=== PATIENT | male | born 1965 | race Caucasian/White ===

== ENCOUNTER 2016-12-17 05:20 | Inpatient (IN) | payer BC ==
[2016-12-17] MEDS ORDERED: Lactated Ringers 1,000 ML IV SCH (06:30)
[2016-12-17] MEDS ORDERED: Povidone-Iodine 10% Soln 118.25 ML Bottle ONE (06:54)
[2016-12-17] MEDS ORDERED: Thrombin (Bovine) 5,000 Unit Kit ONE (06:54)
[2016-12-17] MEDS: Tranexamic Acid 1,000 MG in Sodium Chloride 0.9% 50 ML IV SCH ×3 (07:25→14:04)
[2016-12-17] MEDS ORDERED: Succinylcholine/Normal Saline 200 MG/10 ML Syringe ONE (07:29)
[2016-12-17] MEDS ORDERED: Propofol 200 MG/20 ML SDV ONE (07:29)
[2016-12-17] MEDS ORDERED: fentaNYL 250 MCG/5 ML SDV ONE ×3 (07:29→11:17)
[2016-12-17] MEDS ORDERED: Dexamethasone 4 MG/ML SDV ONE (07:29)
[2016-12-17] MEDS ORDERED: Rocuronium 50 MG/5 ML Vial ONE ×2 (07:29→08:02)
[2016-12-17] MEDS ORDERED: Ondansetron 4 MG/2 ML SDV ONE (07:29)
[2016-12-17] MEDS ORDERED: ceFAZolin 2 GM in Sodium Chloride 0.9% 50 ML IV ONE (07:45)
[2016-12-17] MEDS ORDERED: Ropivacaine 49.25 ML, Ketorolac 30 MG, EPINEPHrine 0.5 MG, cloNIDine 80 MCG, Sodium Chl... INJECT SCH ×5 (08:00)
[2016-12-17] MEDS ORDERED: Lactated Ringers 1,000 ML ONE (09:37)
[2016-12-17] MEDS ORDERED: ceFAZolin 1 GM Vial ONE (10:57)
[2016-12-17] MEDS ORDERED: Magnesium Hydroxide 400 MG/5 ML Susp 30 ML Cup PO PRN (12:35)
[2016-12-17] MEDS ORDERED: Naloxone 0.4 MG/ML SDV IVPUSH PRN (12:35)
[2016-12-17] MEDS ORDERED: Zolpidem 5 MG Tab PO PRN (12:35)
[2016-12-17] MEDS ORDERED: diphenhydrAMINE 25 MG Cap PO PRN (12:35)
[2016-12-17] MEDS ORDERED: Sennosides 8.6 MG Tab PO PRN (12:35)
[2016-12-17] MEDS ORDERED: Acetaminophen 650 MG in Premix Bag 1 BAG IV PRN (12:35)
[2016-12-17] MEDS ORDERED: Dexamethasone 4 MG/ML SDV IVPUSH SCH (12:45)
[2016-12-17] MEDS ORDERED: ceFAZolin 2 GM in Sodium Chloride 0.9% 50 ML IV SCH (12:45)
[2016-12-17] MEDS ORDERED: hydrOXYzine HCl 50 MG/ML SDV IM ONE (12:50)
[2016-12-17] MEDS: HYDROmorphone 1 MG/ML Syringe IVPUSH PRN ×4 (14:53→21:43)
--- NOTE | 2016-12-17 14:55 | PCM.PN ---
- General Info Date of Service: 12/17/16 Functional Status: Denies: pain controlled - Review of Systems Pulmonary: Denies: shortness of breath Musculoskeletal: Reports: back pain Systems Review Comment:: Patient is seen in the postop setting. He is having a fair amount of lower back pain at this time and will be receiving IV narcotics shortly. No complaints of pain that radiates from his lower back. No numbness or tingling in his extremities. He is able to wiggle his toes and feet without any difficulty. No complaints of chest pain, shortness of breath or palpitations. Vital signs have been stable so far. - Patient Data Vitals - most recent: Last Vital Signs Temp 36.1 C 12/17/16 14:09 Pulse 78 12/17/16 14:09 Resp 19 12/17/16 14:09 BP 136/79 12/17/16 14:09 Pulse Ox 95 12/17/16 14:09 Weight - most recent: 135.171 kg I&O - last 24 hours: Intake & Output 12/16/16 12/17/16 12/17/16 22:59 06:59 14:59 Output Total 350 Balance -350 Med Orders - Current: Current Medications Dexamethasone (Dexamethasone) 4 mg IVPUSH Q6H JUAN CARLOS Diazepam (Valium) 5 mg IVPUSH Q6H PRN PRN Reason: Spasms Last Admin: 12/17/16 13:05 Dose: 5 mg Diphenhydramine HCl (Benadryl) 25 mg PO Q4H PRN PRN Reason: Itching Hydromorphone HCl (Dilaudid) 1 mg IVPUSH Q2H PRN PRN Reason: Pain Lactated Ringer's (Ringers, Lactated) 1,000 mls @ 0 mls/hr IV ASDIRECTED JUAN CARLOS PRN Reason: KVO Last Admin: 12/17/16 07:13 Dose: 25 mls/hr Acetaminophen 650 mg/ Premix 65 mls @ 400 mls/hr IV Q6H PRN PRN Reason: Pain Stop: 12/18/16 12:36 Cefazolin Sodium 2 gm/ Sodium (Chloride) 50 mls @ 100 mls/hr IV Q8H JUAN CARLOS Magnesium Hydroxide (Milk Of Magnesia) 30 ml PO DAILY PRN PRN Reason: Constipation Oxycodone/Acetaminophen (Percocet 325-5 Mg) 2 tab PO Q6H PRN PRN Reason: Pain Senna (Senna) 8.6 mg PO BID PRN PRN Reason: Constipation Zolpidem Tartrate (Ambien) 5 mg PO BEDTIME PRN PRN Reason: Sleep Discontinued Medications Cefazolin Sodium (Ancef) Confirm Administered Dose 2 gm .ROUTE .STK-MED ONE Stop: 12/17/16 10:58 Ropivacaine 49.25 ml/Ketorolac Tromethamine 30 mg/Epinephrine HCl 0.5 mg/ Clonidine HCl 80 mcg/ Sodium Chloride 48.45 ml 0 ml INJECT ASDIRECTED [facility] Stop: 12/17/16 08:01 Dexamethasone (Dexamethasone) Confirm Administered Dose 4 mg .ROUTE .STK-MED ONE Stop: 12/17/16 07:30 Dexamethasone (Dexamethasone) 4 mg IVPUSH Q6H [facility] Fentanyl (Sublimaze) Confirm Administered Dose 500 mcg .ROUTE .STK-MED ONE Stop: 12/17/16 07:30 Fentanyl (Sublimaze) Confirm Administered Dose 250 mcg .ROUTE .STK-MED ONE Stop: 12/17/16 09:42 Fentanyl (Sublimaze) Confirm Administered Dose 250 mcg .ROUTE .STK-MED ONE Stop: 12/17/16 11:18 Glycopyrrolate () Confirm Administered Dose 1 mg .ROUTE .STK-MED ONE Stop: 12/17/16 08:14 Hydroxyzine HCl (Vistaril) 100 mg IM ONETIME ONE Stop: 12/17/16 12:51 Last Admin: 12/17/16 12:57 Dose: 100 mg Cefazolin Sodium 2 gm/ Sodium (Chloride) 50 mls @ 100 mls/hr IV ONETIME ONE Stop: 12/17/16 08:14 Last Admin: 12/17/16 07:24 Dose: 100 mls/hr Tranexamic Acid 1,000 mg/ (Sodium Chloride) 60 mls @ 240 mls/hr IV Q3H [facility] Stop: 12/17/16 11:14 Last Admin: 12/17/16 14:04 Dose: Not Given Lactated Ringer's (Ringers, Lactated) Confirm Administered Dose 1,000 mls @ as directed .ROUTE .STK-MED ONE Stop: 12/17/16 09:38 Cefazolin Sodium 2 gm/ Sodium (Chloride) 50 mls @ 100 mls/hr IV Q8H JUAN CARLOS Naloxone HCl (Narcan) 0.2 mg IVPUSH ONETIME PRN PRN Reason: Oversedation Stop: 12/17/16 12:36 Ondansetron HCl (Zofran) Confirm Administered Dose 4 mg .ROUTE .STK-MED ONE Stop: 12/17/16 07:30 Povidone Iodine (Betadine 10% Soln) Confirm Administered Dose 1 ml .ROUTE .STK- MED ONE Stop: 12/17/16 06:55 Last Admin: 12/17/16 08:28 Dose: 1 ml Propofol (Diprivan 20 Ml) Confirm Administered Dose 200 mg .ROUTE .STK-MED ONE Stop: 12/17/16 07:30 Rocuronium [place] (Zemuron) Confirm Administered Dose 50 mg .ROUTE .STK-MED ONE Stop: 12/17/16 07:30 Rocuronium [place] (Zemuron) Confirm Administered Dose 50 mg .ROUTE .STK-MED ONE Stop: 12/17/16 08:03 Succinylcholine Chloride (Succinylcholine In Ns Pf) Confirm Administered Dose 200 mg .ROUTE .STK-MED ONE Stop: 12/17/16 07:30 Thrombin (Thrombin-Jmi) Confirm Administered Dose 10,000 unit .ROUTE .STK-MED ONE Stop: 12/17/16 06:55 Last Admin: 12/17/16 08:27 Dose: 10,000 unit - Exam Quality Assessment: supplemental oxygen General: alert, oriented, cooperative, no acute distress Neck: supple Lungs: Clear to auscultation, Normal respiratory effort Abdomen: soft, no distension Back Exam: normal inspection Extremities: no edema, no cyanosis Skin: warm, dry Wound/Incisions: dressing dry and intact, no drainage Psy/Mental Status: alert, normal affect - Problem List Review Problem List Initiated/Reviewed/Updated: Yes - My Orders Last 24 Hours: My Active Orders 12/17/16 21:00 Gabapentin [Neurontin] 300 mg PO BID Mercaptopurine [Mercaptopurine] 75 mg PO BEDTIME - Plan Plan:: ASSESSMENT AND PLAN Lumbar spinal stenosis with radiculopathy - status post lumbar fusion. Significant pain postoperatively but otherwise stable. -Postoperative cares per surgical team -Restart gabapentin Paroxysmal atrial fibrillation - no evidence for recurrence. Crohn's disease - stable at this time with suppressive medication use. -Continue mercaptopurine Kamlesh Jordan M.D.
[2016-12-17] MEDS: Dexamethasone 4 MG/ML SDV IVPUSH SCH ×2 (15:02→21:30)
[2016-12-17] MEDS: ceFAZolin 2 GM in Sodium Chloride 0.9% 50 ML IV SCH ×2 (15:27→23:08)
[2016-12-17] MEDS: Acetaminophen/oxyCODONE 325-5 MG Tab PO PRN ×2 (16:35→22:23)
--- NOTE | 2016-12-17 18:43 | OR ---
DATE OF PROCEDURE: 12/17/2016 PREOPERATIVE DIAGNOSIS: L4-L5 and L5-S1 lumbar stenosis and radiculopathy. POSTOPERATIVE DIAGNOSIS: L4-L5 and L5-S1 lumbar stenosis and radiculopathy. PROCEDURES: 1. L4-L5 and L5-S1 posterolateral lumbar fusion. 2. L4-L5 laminectomy required in addition to preparation for disk space. 3. L5-S1 disk laminectomy required in addition to preparation for disk space. 4. Insertion of interbody device, L4-L5. 5. Insertion of interbody device, L5-S1. 6. Segmental instrumentation, L4-L5 and L5-S1. 7. Use of biosynthetic allograft and autograft obtained from laminectomy, applied in the posterolateral gutter, L4-L5 and L5-S1. INDICATIONS: The patient is well known to me. We had to cancel his last surgery in July because he went into atrial fibrillation. Preoperative imaging confirmed the above- mentioned diagnosis. Risks and benefits of the procedure were explained to the patient. Informed consent was obtained. DETAILS OF PROCEDURE: The patient was seen preoperatively by myself and the anesthesia staff in the preop holding area where the operative site was marked. He was brought to the operative suite by the anesthesia staff where general anesthesia was administered. Neuromonitoring leads were placed. A sterile Kimble catheter was placed. The operating microscope as well as the fluoroscopy unit was draped in sterile manner. He was placed into a prone position on a Andrei table. All extremities found to be well padded. The back was then prepped and draped in a sterile manner. Time-out was called identifying the correct patient, correct procedure, the correct site, and antibiotics had been with appropriate period of time. Please note that antibiotics were again repeated approximately 10:45 which were 2 g of Ancef. The sterilely draped fluoroscopy unit was used to identify the L4 through S1 pedicles and then a midline incision was made over the L3 through S1 spinous processes and carried down to the fascia. Bleeding was controlled with Bovie electrocautery as well as a 5.0 Aquamantys unit. Cerebellar retractors were then used, I then went through the fascia with a Diaz elevator, dissected over the posterior aspect of the spinous process and its respective lamina facets from L3 down to S1. After this had been accomplished, I then came down over the transverse processes on the left at L4, L5, and S1 and created a space for the graft to the posterolateral gutter. After this had been accomplished, I then proceeded with screw placement on the left side. He did have a lumbarized sacral S1 segment and I did use lateral fluoroscopy to help identify the appropriate starting point. I also used the PediGuard to ensure that I was in the pedicle. I started with the S1 pedicle and then placed the L5 and L4 pedicles screws. After this had been accomplished, I did this in a manner by where I have used the PediGuard to make sure that we were in the correct tract and then used a pedicle probe, followed by tapping, followed by pedicle probe, followed by screw placement. A 50 mm x 6.5 mm screws were used in all pedicles except for the left L5 pedicle which had a 45 mm screw placed. This was then repeated on the right side. After this had been accomplished, I then proceeded with my interbody placement starting at the L4- L5 disk space on the right. He did have a right disk herniation on the posterior aspect of the right side of the L4 vertebral body, so I decided to start there. This was done by making a trough to the lateral lamina and then used an osteotome to remove the inferior facet of the superior vertebral body and then using a long ball, 3-0 curette and Kerrison removing the superior facet of the inferior vertebral body, this provided good access as well as protection of the dura with ligamentum flavum still intact, identified the disk space and then used sequential leonor from starting to 7 to 11. I then did a thorough diskectomy using straight upgoing and downgoing curettes as well as a pituitary and removed a fair amount of disk material at each level. I then used a bone final and under radiographic guidance, I counted as far as anterior as I could on the disk space and then inserted synthetic as well as autograft containing from my facetectomies. I then inserted my interbody. At L4-L5, I inserted a 10 x 26, 8 to 15, 4-degree implant and a 10 x 22, 11 to 17, 4-degree implant at L5-S1. I repeated this same exact procedure at L5-S1 to insert the interbody at that level. After this had been accomplished, I then placed my tulips and then placed a macey on the right side. I did have to do some controlled bleeding with bipolar electrocautery during this preparation as well. I then proceeded to remove the L4 and L5 spinous processes and all of the lamina at L4 and partial lamina at L5. I then used a nerve root retractor to protect the dura and then explored where the disk herniation should be on the right behind the L4 vertebral body. I was able to remove a small amount of disk material. There was fair amount of epidural bleeding which was controlled with FloSeal as well as a Ray-Maryjane. After having performed these laminectomies, I irrigated with 3 L of Betadine infused irrigation. I then decorticated the transverse processes and the lateral aspect of the facets at L4, L5, and S1 on the left. I then inserted my tulips and rods and placed the graft which contained some of the synthetic graft plus graft from the laminectomy site. After this had been accomplished, I then ran a drain at the lateral aspect of the wound under the fascia. We then closed the fascia with a #2 interlocking suture, followed by #2 running suture, followed by a liter of Betadine infused irrigation, followed by deep 0 interrupted sutures, followed by 2-0 subcutaneous sutures, followed by 2-0 Monocryl, followed by Dermabond as well as sterile dressing and Medipore tape. The screws were tested, the lowest one was L5 on the left at 9. All the others were above 20. Neuromonitoring leads were normal throughout the case. We then flipped the patient back onto his hospital bed into a supine position. He was taken to the PACU in stable condition. Sukhdeep Martinez DO /[id number]
[2016-12-17] MEDS ORDERED: MERCAPTOPURINE PO SCH (21:00)
[2016-12-17] MEDS ORDERED: MERCAPTOPURINE 50 MG PO SCH (21:00)
[2016-12-17] MEDS: Gabapentin 300 MG Cap PO SCH (21:30)
[2016-12-18] MEDS: Dexamethasone 4 MG/ML SDV IVPUSH SCH ×2 (03:40→08:20)
[2016-12-18] MEDS: Acetaminophen/oxyCODONE 325-5 MG Tab PO PRN ×2 (04:35→10:30)
--- NOTE | 2016-12-18 07:37 | OR ---
DATE OF PROCEDURE: 12/17/2016 This is an addendum to operative report. I think I went as far as the diagnosis. ADDENDUM: ESTIMATED BLOOD LOSS: 30 mL. COMPLICATIONS: None. SPECIMEN: None. FLUID: Lactated Ringer's solution. DISCHARGE DISPOSITION: Stable to PACU. Sukhdeep Martinez DO /[id number]
[2016-12-18] MEDS: ceFAZolin 2 GM in Sodium Chloride 0.9% 50 ML IV SCH (07:41)
[2016-12-18] MEDS: Gabapentin 300 MG Cap PO SCH (08:20)
[2016-12-18 12:05] VITALS: BP 126/76
--- NOTE | 2016-12-30 10:57 | DISCH ---
DIAGNOSIS: Lumbar radiculopathy and stenosis L4-L5 and L5-S1. PROCEDURE: Posterior lumbar interbody fusion, L4-L5 and L5-S1. DIET: Regular diet. DISCHARGE ACTIVITY: Weightbearing as tolerated. No bending, lifting, or twisting. DISCHARGE DISPOSITION: To home in good condition. CONSULTS: Kamlesh Jordan MD for medical management. DISCHARGE MEDICATIONS: Acetaminophen oxycodone 325/5 mg one p.o. q.6 hours p.r.n. pain, diazepam 5 mg p.o. daily, Lasix 20 mg p.o. daily, mercaptopurine 75 mg p.o. at bedtime, multivitamin one tab p.o. daily, tramadol 50 mg orally t.i.d., gabapentin 300 mg orally b.i.d. ALLERGIES: AZITHROMYCIN. FOLLOWUP: Is with Dr. Martinez in one month postoperatively. SUMMARY OF HOSPITAL STAY: The patient was admitted on 12/17/2016 for the above-mentioned diagnosis. He underwent the above-mentioned procedures, kept postoperatively for physical therapy, occupational therapy, and pain control. We discharged him with a drain. His is a nurse and was given instructions regarding the drain management. He was discharged home in good condition with one-month followup.
== END 2016-12-18 13:45 | disposition home or self-care (01) | DRG 304 ==
LOC: JP.SDS 05:20 → JP.MS 05:20 → EDSTATUS 07:30 → JP.MS 14:00
PROVIDERS: ADMIT Orthopaedic Surgery; ATTEND Orthopaedic Surgery
PROC: 0SG10A1 (ICD-10-PCS; principal; 2016-12-17)
PROC: 0SG10K1 Fusion of 2 or more Lumbar Vertebral Joints with Nonautologous Tissue Substitute, Posterior Approach, Posterior Column, Open Approach (ICD-10-PCS; 2016-12-17)
PROC: 0SB40ZZ Excision of Lumbosacral Disc, Open Approach (ICD-10-PCS; 2016-12-17)
DX: M48.06 Spinal stenosis, lumbar region (principal); M54.16 Radiculopathy, lumbar region; K50.90 Crohn's disease, unspecified, without complications; J45.909 Unspecified asthma, uncomplicated; I48.0 Paroxysmal atrial fibrillation; I50.9 Heart failure, unspecified; G47.33 Obstructive sleep apnea (adult) (pediatric); Z79.899 Other long term (current) drug therapy
CPT/HCPCS: 36415; 76001; 80048; 85025; 97110-GP; 97162-GP; 97165-GO; 97530-GP; 97535-GP; 97760-GP; A9270-GY; C1713; J0690; J1100; J1170; J2405; J2704; J3010; J3360; J3410; J7050; J7120

== ENCOUNTER 2017-05-23 08:09 | Emergency (ER) | payer BC ==
[2017-05-23] MEDS ORDERED: Diltiazem 25 MG/5 ML SDV IVPUSH ONE (08:26)
[2017-05-23] MEDS ORDERED: Diltiazem 100 MG in Sodium Chloride 0.9% 100 ML IV SCH (08:30)
--- NOTE | 2017-05-23 08:33 | EDM.PDOC ---
ED HPI GENERAL MEDICAL PROBLEM - General Chief Complaint: Cardiovascular Problem Stated Complaint: A-FIB Time Seen by Provider: 05/23/17 08:28 Source of Information: Reports: Patient History Limitations: Reports: No Limitations - History of Present Illness INITIAL COMMENTS - FREE TEXT/NARRATIVE: pt went into a irregular heart rhythm about 11 pm last nite. He had a restless nite. Onset: Other ( last nite at 11 pm. ) Duration: Hour(s): Location: Reports: Chest, Other (pt hs no chest pain. ) Associated Symptoms: Reports: No Other Symptoms, Other ( Pt has a rapid irregular heart rhythm. ) - Related Data Allergies Allergy/AdvReac Type Severity Reaction Status Date / Time azithromycin Allergy Intermediate Rash Verified 05/23/17 08:19 [From Zithromax Z-Coleman] Home Meds: Home Meds Furosemide [Lasix] 20 mg PO DAILY PRN 07/21/13 [History] Mercaptopurine 75 mg PO BEDTIME 07/29/15 [History] Multivitamin [Multivitamins] 1 tab PO DAILY 07/23/16 [History] Gabapentin [Neurontin] 300 mg PO TID PRN 04/23/17 [History] traMADol [Ultram] 50 mg PO Q6H PRN 05/13/17 [History] Past Medical History HEENT History: Reports: Impaired Vision Other HEENT History: wears glasses Cardiovascular History: Reports: Afib, Arrhythmia, Heart Failure, Other (See Below) Other Cardiovascular History: ARVD; hx of cardioversion Respiratory History: Reports: Sleep Apnea Gastrointestinal History: Reports: Colon Polyp, Inflammatory Bowel Disease, Other (See Below) Other Gastrointestinal History: Chrons Genitourinary History: Reports: None Musculoskeletal History: Reports: Back Pain, Chronic, Fracture, Other (See Below ) Other Musculoskeletal History: s/p low back surgery Endocrine/Metabolic History: Reports: Obesity/BMI 30+ - Infectious Disease History Infectious Disease History: Reports: Chicken Pox - Past Surgical History HEENT Surgical History: Reports: Adenoidectomy, LASIK, Naso-Sinus Surgery Male Surgical History: Reports: Vasectomy Musculoskeletal Surgical History: Reports: Arthroscopic Procedure Social & Family History - Family History Cardiac: Reports: Aneurysm, Heart Failure, Pacemaker, Stent, Other (See Below) Other Cardiac Family History: ARVD Respiratory: Reports: COPD, Sleep Apnea GI: Reports: Other (See Below) Other GI Family History: Chrons; ulcerative colitis Musculoskeletal: Reports: Fibromyalgia Neurological: Reports: Cerebral Aneurysms Psychiatric: Reports: Psychosis Endocrine/Metabolic: Reports: Diabetes, Type I - Tobacco Use Smoking Status *Q: Never Smoker Second Hand Smoke Exposure: No - Caffeine Use Caffeine Use: Reports: Coffee - Alcohol Use Days Per Week of Alcohol Use: 0 - Recreational Drug Use Recreational Drug Use: No - Living Situation & Occupation Living situation: Reports: Occupation: Employed ED ROS GENERAL - Review of Systems Review Of Systems: See Below Constitutional: Reports: No Symptoms HEENT: Reports: No Symptoms Respiratory: Reports: No Symptoms Cardiovascular: Reports: Palpitations, Other (pt has not been doing anything different. ) Endocrine: Reports: No Symptoms GI/Abdominal: Reports: No Symptoms : Reports: No Symptoms Musculoskeletal: Reports: No Symptoms Skin: Reports: No Symptoms Neurological: Reports: No Symptoms ED EXAM, GENERAL - Physical Exam Exam: See Below Free Text/Narrative:: pt is not in any distress at this time. Exam Limited By: No Limitations General Appearance: Alert, No Apparent Distress Ears: Normal TMs Nose: Normal Inspection Throat/Mouth: Normal Inspection Head: Atraumatic Neck: Normal Inspection Respiratory/Chest: No Respiratory Distress Cardiovascular: Irregularly Irregular, Other ( rate is in the 100 range. ) GI/Abdominal: Soft, Non-Tender (Male) Exam: Deferred Rectal (Males) Exam: Deferred Extremities: Normal Inspection Neurological: Alert, Oriented, Normal Cognition Psychiatric: Normal Affect Skin Exam: Warm Course - Vital Signs Last Recorded V/S: Last Vital Signs Temp 36.6 C 05/23/17 08:16 Pulse 54 L 05/23/17 10:57 Resp 13 05/23/17 10:57 BP 116/78 05/23/17 10:57 Pulse Ox 100 05/23/17 10:57 - Orders/Labs/Meds Orders: Active Orders 24 hr Category Date Time Status EKG Documentation Completion [RC] ASDIRECTED Care 05/23/17 08:21 Active EKG Documentation Completion [RC] ASDIRECTED Care 05/23/17 11:16 Ordered UA W/MICROSCOPIC [URIN] Urgent Lab 05/23/17 08:20 Uncollected Diltiazem [Cardizem] 100 mg Med 05/23/17 08:30 Active Sodium Chloride 0.9% [Normal Saline] 100 ml IV TITRATE EKG 12 Lead [EK] Routine Ther 05/23/17 08:21 Ordered EKG 12 Lead [EK] Routine Ther 05/23/17 11:16 Ordered Medication Orders Diltiazem HCl 100 mg/ Sodium (Chloride) 100 mls @ 5 mls/hr IV TITRATE JUAN CARLOS; 5 MG /HR PRN Reason: Protocol Last Titration: 05/23/17 08:47 Dose: 10 mg/hr, 10 mls/hr Admin: 05/23/17 08:40 Dose: 5 mg/hr, 5 mls/hr Labs: Laboratory Tests 05/23/17 05/23/17 05/23/17 Range/Units 08:20 08:20 08:20 WBC 8.2 (4.5-11.0) K/uL RBC 5.15 (4.30-5.90) M/uL Hgb 15.5 H D (12.0-15.0) g/dL Hct 45.4 (40.0-54.0) % MCV 88 (80-98) fL MCH 30 (27-31) pg MCHC 34 (32-36) % Plt Count 213 (150-400) K/uL Neut % (Auto) 67 H (36-66) % Lymph % (Auto) 23 L (24-44) % [place] % (Auto) 8 H (2-6) % Eos % (Auto) 2 (2-4) % Baso % (Auto) 1 (0-1) % Sodium 141 (140-148) mmol/L Potassium 4.7 (3.6-5.2) mmol/L Chloride 109 H (100-108) mmol/L Carbon Dioxide 28 (21-32) mmol/L Anion Gap 8.7 (5.0-14.0) mmol/L BUN 14 (7-18) mg/dL Creatinine 0.9 (0.8-1.3) mg/dL Est Cr Clr Drug Dosing 110.97 mL/min Estimated GFR (MDRD) > 60 (>60) Glucose 112 H (74-106) mg/dL Calcium 8.4 L (8.5-10.1) mg/dL Total Bilirubin 0.4 (0.2-1.0) mg/dL AST 16 (15-37) U/L ALT 39 (12-78) U/L Alkaline Phosphatase 34 L (46-116) U/L Troponin I < 0.017 (0.000-0.056) ng/mL Total Protein 5.7 L (6.4-8.2) g/dL Albumin 3.5 (3.4-5.0) g/dL Globulin 2.2 L (2.3-3.5) g/dL Albumin/Globulin Ratio 1.6 (1.2-2.2) TSH, Ultra Sensitive (0.358-3.740) uIU/mL 05/23/17 Range/Units 08:34 WBC (4.5-11.0) K/uL RBC (4.30-5.90) M/uL Hgb (12.0-15.0) g/dL Hct (40.0-54.0) % MCV (80-98) fL MCH (27-31) pg MCHC (32-36) % Plt Count (150-400) K/uL Neut % (Auto) (36-66) % Lymph % (Auto) (24-44) % [place] % (Auto) (2-6) % Eos % (Auto) (2-4) % Baso % (Auto) (0-1) % Sodium (140-148) mmol/L Potassium (3.6-5.2) mmol/L Chloride (100-108) mmol/L Carbon Dioxide (21-32) mmol/L Anion Gap (5.0-14.0) mmol/L BUN (7-18) mg/dL Creatinine (0.8-1.3) mg/dL Est Cr Clr Drug Dosing mL/min Estimated GFR (MDRD) (>60) Glucose (74-106) mg/dL Calcium (8.5-10.1) mg/dL Total Bilirubin (0.2-1.0) mg/dL AST (15-37) U/L ALT (12-78) U/L Alkaline Phosphatase (46-116) U/L Troponin I (0.000-0.056) ng/mL Total Protein (6.4-8.2) g/dL Albumin (3.4-5.0) g/dL Globulin (2.3-3.5) g/dL Albumin/Globulin Ratio (1.2-2.2) TSH, Ultra Sensitive 0.757 (0.358-3.740) uIU/mL Meds: Medications Generic Name Dose Route Start Last Admin Trade Name Freq PRN Reason Stop Dose Admin Diltiazem HCl 100 mg/ Sodium 100 mls @ 5 mls/hr 05/23/17 08:30 05/23/17 08:47 Chloride IV 10 mg/hr TITRATE JUAN CARLOS 10 mls/hr Protocol Titration 5 MG/HR Discontinued Medications Generic Name Dose Route Start Last Admin Trade Name Freq PRN Reason Stop Dose Admin Diltiazem HCl 10 mg 05/23/17 08:26 05/23/17 08:37 Diltiazem IVPUSH 05/23/17 08:27 10 mg ONETIME ONE Administration Propofol Confirm 05/23/17 10:43 Diprivan 20 Ml Administered 05/23/17 10:44 Dose 200 mg .ROUTE .STK-MED ONE - Re-Assessments/Exams Free Text/Narrative Re-Assessment/Exam: 05/23/17 10:21 pt arrived with a history of a irregular heart rhythm. He has had atrial fib 3 times. He has been electriclly cardioverted twice. he went into this about 11 pm last nite. 05/23/17 10:24 pt had normal lab work and a normal trop. He has a cardizem drip going and his rate has slowed to 70. He will be electrically cardioverted. Dr Jordan consulted on the pt. 05/23/17 11:17 pt was cardioverted and did well with that Departure - Departure Time of Disposition: 11:18 Disposition: Home, Self-Care 01 Condition: Fair Clinical Impression: Atrial fibrillation, Encounter for cardioversion procedure Referrals: Abel Saucedo MD [Primary Care Provider] - Forms: ED Department Discharge Care Plan Goals: rtc if problems, cont same meds. - My Orders Last 24 Hours: My Active Orders 05/23/17 08:20 UA W/MICROSCOPIC [URIN] Urgent 05/23/17 08:21 EKG Documentation Completion [RC] ASDIRECTED EKG 12 Lead [EK] Routine 05/23/17 08:30 Diltiazem [Cardizem] 100 mg Sodium Chloride 0.9% [Normal Saline] 100 ml IV TITRATE 05/23/17 11:16 EKG Documentation Completion [RC] ASDIRECTED EKG 12 Lead [EK] Routine - Assessment/Plan Last 24 Hours: My Active Orders 05/23/17 08:20 UA W/MICROSCOPIC [URIN] Urgent 05/23/17 08:21 EKG Documentation Completion [RC] ASDIRECTED EKG 12 Lead [EK] Routine 05/23/17 08:30 Diltiazem [Cardizem] 100 mg Sodium Chloride 0.9% [Normal Saline] 100 ml IV TITRATE 05/23/17 11:16 EKG Documentation Completion [RC] ASDIRECTED EKG 12 Lead [EK] Routine
[2017-05-23] MEDS ORDERED: Propofol 200 MG/20 ML SDV ONE (10:43)
[2017-05-23 11:02] VITALS: BP 116/78
--- NOTE | 2017-05-23 11:04 | PCM.PRNOTE ---
- Free Text/Narrative Note: Date of service: 05/23/2017 Proposed procedure: synchronized cardioversion Preprocedure diagnosis: paroxysmal atrial fibrillation with rapid ventricular response Post procedure diagnosis: paroxysmal atrial fibrillation with rapid ventricular response Indication for procedure: Armen was evaluated today for management atrial fibrillation with rapid ventricular response. Synchronized cardioversion was recommended as a primary treatment withparoxysmal nature and chronic anticoagulation. Description of the procedure: Armen is currently located in [place] [id number]. We have reviewed the potential risks of electrical cardioversion including but not limited to: Superficial skin whitley, ineffective treatment, other arrhythmias, reaction to anesthesia medications or potentially asystole. The benefits of the procedure have also been reviewed. At this time the patient wishes to proceed with electrical cardioversion. All necessary pre-procedure information and paperwork has been provided and completed, respectively. The patient was connected to cardioversion pads and monitoring equipment per protocol. Prior to the procedure, a timeout was held with nursing and anesthesia present to confirm the right patient and right procedure. Once appropriate anesthesia was applied the machine was charged to 200 Joules and a synchronized electrical shock was applied. The patient was successfully converted to normal sinus rhythm based on telemetry monitoring. They will remain in their current location until anesthesia has dissipated and the patient is more awake and alert. They will then be discharged to home once medically stable. Anticoagulation should be continued for at least one month post cardioversion. There were no immediate complications noted from the procedure. Post procedure EKG is pending at the time of dictation. No medication changes are recommended at this time given the long duration between episodes. Kamlesh Jordan M.D.
== END 2017-05-23 11:59 | disposition home or self-care (01) ==
LOC: JP.ED 08:09
DX: I48.91 Unspecified atrial fibrillation (principal); I50.9 Heart failure, unspecified; G47.30 Sleep apnea, unspecified; E66.9 Obesity, unspecified; Z98.890 Other specified postprocedural states; Z79.899 Other long term (current) drug therapy; Z88.1 Allergy status to other antibiotic agents
CPT/HCPCS: 36415; 80053; 84443; 84484; 85025; 92960; 93005; 96374; 99284; J2704; J3490; J7030

== ENCOUNTER 2017-12-29 05:59 | Day surgery (SDC) | payer BC ==
[~2017-12-29 05:59] MED LIST: Acetaminophen 500 MG Tab PO ONE; Gabapentin 300 MG Cap PO ONE; Scopolamine 1.5 MG Transdermal Patch TOP SCH
[2017-12-29] MEDS ORDERED: Povidone-Iodine 10% Soln 118.25 ML Bottle ONE (06:59)
[2017-12-29] MEDS ORDERED: Thrombin (Bovine) 5,000 Unit Kit ONE (06:59)
[2017-12-29] MEDS ORDERED: Lactated Ringers 1,000 ML IV SCH (07:15)
[2017-12-29] MEDS ORDERED: ceFAZolin 2 GM in Premix Bag 1 BAG IV ONE (07:15)
[2017-12-29] MEDS ORDERED: Dexamethasone 4 MG/ML SDV ONE (07:22)
[2017-12-29] MEDS ORDERED: Succinylcholine 200 MG/10 ML MDV ONE (07:22)
[2017-12-29] MEDS ORDERED: Propofol 200 MG/20 ML SDV ONE ×3 (07:22→09:01)
[2017-12-29] MEDS ORDERED: Rocuronium 50 MG/5 ML Vial ONE ×2 (07:22→08:33)
[2017-12-29] MEDS ORDERED: Ondansetron 4 MG/2 ML SDV ONE (07:22)
[2017-12-29] MEDS ORDERED: Ketamine 500 MG/5 ML MDV IV SCH (07:45)
[2017-12-29] MEDS: Tranexamic Acid 1,000 MG in Sodium Chloride 0.9% 50 ML IV SCH ×2 (07:45→10:21)
[2017-12-29] MEDS ORDERED: Ropivacaine 49.25 ML, Ketorolac 30 MG, EPINEPHrine 0.5 MG, cloNIDine 80 MCG, Sodium Chl... INJECT ONE ×5 (07:45)
[2017-12-29] MEDS ORDERED: fentaNYL 250 MCG/5 ML SDV ONE (07:47)
[2017-12-29] MEDS ORDERED: Naloxone 0.4 MG/ML SDV IVPUSH PRN (10:13)
[2017-12-29] MEDS ORDERED: Zolpidem 5 MG Tab PO PRN (10:13)
[2017-12-29] MEDS ORDERED: diphenhydrAMINE 25 MG Cap PO PRN (10:13)
[2017-12-29] MEDS ORDERED: Acetaminophen/oxyCODONE 325-5 MG Tab PO PRN (10:16)
[2017-12-29] MEDS ORDERED: Morphine 2 MG/ML Syringe IVPUSH PRN (10:17)
[2017-12-29] MEDS ORDERED: VERIFY SCOPOLAMINE PATCH TOP SCH (11:00)
[2017-12-29 14:48] VITALS: BP 109/67
[2017-12-29] MEDS ORDERED: ceFAZolin 1 GM in Premix Bag 1 BAG IV SCH (15:00)
--- NOTE | 2017-12-29 15:38 | PCM.DCSUM1 ---
Discharge Summary - Discharge Data Discharge Date: 12/29/17 Discharge Disposition: Home, Self-Care 01 Condition: Good - Patient Summary/Data Operative Procedure(s) Performed: revision L4-S1 fusion Complications: none Consults: Consultations 12/29/17 10:13 OT Evaluation and Treatment [CONS] Routine Please Evaluate and Treat. OT Reason for Consult: Strengthening This query below is only for informational purposes and is not editable. PT Evaluation and Treatment [CONS] Routine Please Evaluate and Treat. PT Reason for Consult: Strengthening This query below is only for informational purposes and is not editable. Respiratory Care Assess and Treatment [CONS] Routine Comment: Physician Instructions: ost Op Pneumonia Prevention - Patient Instructions Diet: Usual Diet as Tolerated Activity: Apply Ice, Full Weight Bearing, No Strenuous Activities, Rest and Relax Today Driving: Do Not Drive Showering/Bathing: May Shower Wound/Incision Care: Keep Operative Site/Wound Site Clean and Dry, Change Dressing Daily, Do NOT Change Dressing Notify Provider of: Fever, Increased Pain, Swelling and Redness, Drainage, Nausea and/or Vomiting - Discharge Plan Prescriptions/Med Rec: Acetaminophen/oxyCODONE [Percocet 325-5 MG] 1 tab PO Q6HR PRN #60 tablet PRN Reason: Pain Home Medications: Home Meds Furosemide [Lasix] 20 mg PO DAILY PRN 07/21/13 [History] Mercaptopurine 75 mg PO BEDTIME 07/29/15 [History] Multivitamin [Multivitamins] 1 tab PO DAILY 07/23/16 [History] Gabapentin [Neurontin] 300 mg PO BID 12/03/17 [History] traMADol [Ultram] 50 mg PO Q4H PRN 12/03/17 [History] Acetaminophen/oxyCODONE [Percocet 325-5 MG] 1 tab PO Q6HR PRN #60 tablet [Rx] - General Info Functional Status: Reports: Pain Controlled, Tolerating Diet, Ambulating, Urinating - Review of Systems General: Reports: No Symptoms HEENT: Reports: No Symptoms Pulmonary: Reports: No Symptoms Cardiovascular: Reports: No Symptoms Gastrointestinal: Reports: No Symptoms Genitourinary: Reports: No Symptoms Musculoskeletal: Reports: Back Pain, Leg Pain Skin: Reports: No Symptoms Neurological: Reports: No Symptoms Psychiatric: Reports: No Symptoms - Patient Data Vitals - Most Recent: Last Vital Signs Temp 97.1 F 12/29/17 14:46 Pulse 92 12/29/17 14:46 Resp 16 12/29/17 14:46 BP 109/67 12/29/17 14:46 Pulse Ox 97 12/29/17 14:46 Weight - Most Recent: 299 lb 4.8 oz I&O - Last 24 hours: Intake & Output 12/29/17 12/29/17 12/29/17 06:59 14:59 22:59 Output Total 400 Balance -400 Lab Results - Last 24 hrs: Laboratory Results - last 24 hr 12/29/17 Range/Units 06:00 Blood Type A NEGATIVE Gel Antibody Screen Negative Med Orders - Current: Current Medications Diphenhydramine HCl (Benadryl) 25 mg PO Q4H PRN PRN Reason: Itching Lactated Ringer's (Ringers, Lactated) 1,000 mls @ 100 mls/hr IV ASDIRECTED [facility] Last Admin: 12/29/17 06:25 Dose: 100 mls/hr Cefazolin Sodium/Dextrose 1 gm (/ Premix) 50 mls @ 100 mls/hr IV Q8H [facility] Stop: 12/29/17 23:29 Last Admin: 12/29/17 15:20 Dose: 100 mls/hr Morphine Sulfate (Morphine) 2 mg IVPUSH Q2H PRN PRN Reason: Pain Naloxone HCl (Narcan) 0.2 mg IVPUSH ONETIME PRN PRN Reason: Oversedation Verify Scopolamine (Patch) 0 each TOP DAILY [facility] Last Admin: 12/29/17 11:14 Dose: Not Given Oxycodone/Acetaminophen (Percocet 325-5 Mg) 1 tab PO Q4H PRN PRN Reason: Pain Last Admin: 12/29/17 13:05 Dose: 1 tab Scopolamine (Transderm-Scop) 1.5 mg TOP Q72H [facility] Stop: 01/01/18 05:00 Last Admin: 12/29/17 06:25 Dose: 1.5 mg Zolpidem Tartrate (Ambien) 5 mg PO BEDTIME PRN PRN Reason: Sleep Discontinued Medications Acetaminophen (Tylenol Extra Strength) 1,000 mg PO ONETIME ONE Stop: 12/29/17 05:31 Last Admin: 12/29/17 06:22 Dose: 1,000 mg Ropivacaine 49.25 ml/Ketorolac Tromethamine 30 mg/Epinephrine HCl 0.5 mg/ Clonidine HCl 80 mcg/ Sodium Chloride 48.45 ml 0 ml INJECT ONETIME ONE Stop: 12/29/17 07:46 Last Admin: 12/29/17 09:22 Dose: 100 ml Dexamethasone (Dexamethasone) Confirm Administered Dose 4 mg .ROUTE .STK-MED ONE Stop: 12/29/17 07:23 Fentanyl (Sublimaze) Confirm Administered Dose 250 mcg .ROUTE .STK-MED ONE Stop: 12/29/17 07:48 Fentanyl Citrate (Fentanyl) Confirm Administered Dose 500 mcg .ROUTE .STK-MED ONE Stop: 12/29/17 07:23 Gabapentin (Neurontin) 300 mg PO ONETIME ONE Stop: 12/29/17 05:31 Last Admin: 12/29/17 06:22 Dose: 300 mg Cefazolin Sodium/Dextrose 2 gm (/ Premix) 50 mls @ 100 mls/hr IV ONETIME ONE Stop: 12/29/17 07:44 Last Admin: 12/29/17 07:30 Dose: 100 mls/hr Tranexamic Acid 1,000 mg/ (Sodium Chloride) 60 mls @ 240 mls/hr IV Q3H JUAN CARLOS Stop: 12/29/17 10:59 Last Admin: 12/29/17 10:21 Dose: 240 mls/hr Ketamine HCl 100 mg/ Sodium (Chloride) 100 mls @ 24 mls/hr IV ASDIRECTED JUAN CARLOS Ketamine HCl (Ketalar) 40 mg IV ASDIRECTED JUAN CARLOS Ondansetron HCl (Zofran) Confirm Administered Dose 4 mg .ROUTE .STK-MED ONE Stop: 12/29/17 07:23 Povidone Iodine (Betadine 10% Soln) Confirm Administered Dose 1 ml .ROUTE .STK- MED ONE Stop: 12/29/17 07:00 Last Admin: 12/29/17 09:45 Dose: 30 ml Propofol (Diprivan 20 Ml) Confirm Administered Dose 200 mg .ROUTE .STK-MED ONE Stop: 12/29/17 07:23 Propofol (Diprivan 20 Ml) Confirm Administered Dose 400 mg .ROUTE .STK-MED ONE Stop: 12/29/17 09:01 Propofol (Diprivan 20 Ml) Confirm Administered Dose 400 mg .ROUTE .STK-MED ONE Stop: 12/29/17 09:02 Rocuronium [place] (Zemuron) Confirm Administered Dose 50 mg .ROUTE .STK-MED ONE Stop: 12/29/17 07:23 Rocuronium [place] (Zemuron) Confirm Administered Dose 50 mg .ROUTE .STK-MED ONE Stop: 12/29/17 08:34 Sodium Chloride (Normal Saline) 1,000 ml IRR .STK-MED ONE Stop: 12/29/17 08:11 Last Admin: 12/29/17 08:10 Dose: 1,000 ml Succinylcholine Chloride (Quelicin) Confirm Administered Dose 200 mg .ROUTE .STK -MED ONE Stop: 12/29/17 07:23 Thrombin (Thrombin-Jmi) Confirm Administered Dose 15,000 unit .ROUTE .STK-MED ONE Stop: 12/29/17 07:00 Last Admin: 12/29/17 08:10 Dose: 10,000 unit - Exam General: Reports: Alert, Oriented HEENT: Reports: Pupils Equal, Pupils Reactive, EOMI, Mucous Membr. Moist/[place] Neck: Reports: Supple, Trachea Midline Lungs: Reports: Normal Respiratory Effort Extremities: Normal Inspection, Normal Range of Motion Skin: Reports: Warm, Dry, Intact Wound/Incisions: Reports: Dressing Dry and Intact, No Drainage Neurological: Reports: No New Focal Deficit Psy/Mental Status: Reports: Alert, Normal Affect, Normal Mood Discharge Operative/Procedures - Procedures Performed Operations: revision L4-S1 lumbar fusion
--- NOTE | 2017-12-29 16:35 | OR ---
DATE OF PROCEDURE: 12/29/2017 PREOPERATIVE DIAGNOSES: 1. Lumbar radiculopathy at L4-L5 and L5-S1, right. 2. Medial screw, L5 and S1, right. 3. Pseudoarthrosis L4-L5 and L5-S1. POSTOPERATIVE DIAGNOSES: 1. Lumbar radiculopathy at L4-L5 and L5-S1, right. 2. Medial screw, L5 and S1, right. 3. Pseudoarthrosis L4-L5 and L5-S1. PROCEDURES: 1. Posterolateral revision fusion at L4-L5 and L5-S1. 2. Segmental instrumentation from removal of the L5 and S1 screws on the right. ANESTHESIA: General endotracheal intubation. FLUID: Lactated Ringer solution. ESTIMATED BLOOD LOSS: 50 mL. COMPLICATIONS: None. SPECIMEN: None. DISCHARGE DISPOSITION: Stable to PACU. INDICATIONS FOR THE PROCEDURE: The patient is well known to me. We previously performed an L4-S1 transforaminal lumbar interbody fusion. The patient did significantly better than preoperatively, but he was occasionally having radicular symptoms on the right side that would occasionally go down the posterior leg. We tried extensive nonoperative treatment, but he still had symptoms. CT confirmed the above-mentioned diagnosis. Risks and benefits of the procedure were explained to the patient. Informed consent was obtained. DETAILS OF PROCEDURE: The patient was seen preoperatively by myself and the anesthesia staff in the preop holding area where the operative site was marked. He was brought to the operative suite by Anesthesia staff where general anesthesia was administered. Sterile Kimble catheter was inserted, which was removed at the end of the case. Neuromonitoring leads were placed and were normal throughout the case. The fluoroscopy unit was sterilely draped. The patient was then prepped and draped in a sterile manner after being placed into a prone position on the Andrei table. A time-out was called identifying the correct patient, correct procedure, the correct site, and antibiotics were begun within appropriate period of time. I went through the same incision as the previous surgery, and I used cerebellar for retraction and Bovie electrocautery as well as an Aquamantys 5.0 unit. I then used cerebellar for retraction, went down to the deep fascia. I then very carefully went through the deep fascia, and then using blunt dissection, went only on the right side and going through a small amount of muscle and subfascial fat, was able to feel the L4 screw. I then developed a plane along the macey along the L5 and S1 screws and then inserted two 75 mm and two 85 mm Versa-Trac blades with the Versa-Trac retractor. I then cleared the macey and screws and then cleared the lateral to the L5 and S1 screws as well as making sure I had good exposure to both of those L5 and S1 screws in case there was a cerebrospinal fluid leak at some point in time during the case. This was accomplished with Bovie electrocautery, rongeurs, as well as curettes. I then removed my set screws on the construct and then removed the macey. I then used the head manipulator to free the tulips. I then removed my L5 screw on the right. There was only blood coming from the hole. I placed some Floseal, Gelfoam, and a cottonoid. I then drilled approximately 1.5 cm lateral for an entry point for the pedicle screw and then using a PediGuard from [employer], made my track for my L5 screw, followed by tapping, followed by 50 mm x 6.5 mm screw placement. I then repeated this at S1. I was more concerned that there might be a cerebrospinal fluid leak at this level, but there was not. A 50 mm screw was placed. I did use the pedicle probe for trajectory purposes. Please note that during screw placement, the order of the procedure was to use the PediGuard followed by pedicle probe, followed by under tapping by two, followed by pedicle probe, followed by screw placement. After this had been accomplished, I then used DuraGen and put it in my screw holes. Please note that I also had Gelfoam ahead of this as well as Floseal and then after placing 2 to 3 small pieces of DuraGen in each of the pedicle screw holes that were previously placed, I then applied DuraSeal over the top. I did this because I was concerned that there may be a cerebrospinal fluid leak that was not manifesting because the patient was in a prone position and my visualization was probably higher than the level of the cerebrospinal fluid or the durotomy breech if there was in fact one. After this had been accomplished, I then placed my rods and set screws and tightened them with the torque limiter, and then, irrigated with 2 L of Betadine infused irrigation. I then drilled down lateral of the spinous processes of L4, L5, and S1 lateral to the screws and then placed Globus Signify allograft. I then closed my deep fascia with Stratafix followed by irrigation with another liter, followed by #2 Stratafix, 3-0 Stratafix, and Prineo. The patient was then transferred to hospital bed in the supine position. Kimble catheter was removed. He was taken to the PACU in stable condition. Sukhdeep Martinez DO /[id number]
== END 2017-12-29 16:18 | disposition home or self-care (01) ==
LOC: JP.SDS 05:59 → JP.MS 11:05 → JP.SDS 16:18
PROVIDERS: ATTEND Orthopaedic Surgery
DX: M54.17 Radiculopathy, lumbosacral region (principal); M96.0 Pseudarthrosis after fusion or arthrodesis; I50.9 Heart failure, unspecified; I48.91 Unspecified atrial fibrillation; Z79.899 Other long term (current) drug therapy; Z88.1 Allergy status to other antibiotic agents
CPT/HCPCS: 20930; 22630; 22632; 22842; 36415; 76001; 86850; 86900; 86901; 97161; 97530; 97535; A9270; C1713; C1763; J0171; J0330; J0690; J0735; J1100; J1885; J2405; J2704; J2795; J3010; J7030; J7050; J7120

== ENCOUNTER 2019-06-04 08:51 | Emergency (ER) | payer BC ==
--- NOTE | 2019-06-04 09:24 | CRLCR ---
INDICATION: Chest pain COMPARISON: PA chest dated 07/04/2016 TECHNIQUE: Portable AP semi-erect chest performed at 9:09 a.m. FINDINGS: There is a horizontal band of scar tissue or subsegmental atelectasis within the mid right lung. There are no suspicious infiltrates or masses. Heart and pulmonary vessels are within normal range in size given the portable film technique and shallow inspiration. There is no evidence of pneumothorax or pneumomediastinum. IMPRESSION: No acute cardiopulmonary disease process identified. Dictated by Alejandro Martin MD @ 06/04/2019 9:21:59 AM Dictated by: Alejandro Martin MD @ 06/04/2019 09:22:05 (Electronically Signed)
[2019-06-04] MEDS ORDERED: Iopamidol 755 Mg/ML 100 ML Bottle IV ONE (10:02)
--- NOTE | 2019-06-04 10:04 | EDM.PDOC ---
ED HPI GENERAL MEDICAL PROBLEM - General Chief Complaint: Cardiovascular Problem Stated Complaint: CHEST PAINS Time Seen by Provider: 06/04/19 09:40 Source of Information: Reports: Patient History Limitations: Reports: No Limitations - History of Present Illness INITIAL COMMENTS - FREE TEXT/NARRATIVE: 53 yo with hx of atrial fibrillation (on coumadin), ARVD, IBD, recent ablation performed in [place] presents with concerns of chest pain. He awoke at approximately midnight with substernal chest pain and pressure. Some radiation into the back. Associated dyspnea. Currently 10. The pain is pleuritic in nature. He does reports a cough, productive of sputum. No fevers. No known hx of CAD. reports his ARVD so far has not been clinically significant. No hx of PE. Chest Pain Score (Numeric/FACES): 9 Jaw Pain Score (Numeric/FACES): 10 - Related Data Allergies Allergy/AdvReac Type Severity Reaction Status Date / Time azithromycin Allergy Intermediate Rash Verified 06/04/19 09:00 [From Zithromax Z-Coleman] Home Meds: Home Meds Furosemide [Lasix] 40 mg PO DAILY PRN 07/21/13 [History] Mercaptopurine 75 mg PO BEDTIME 07/29/15 [History] Warfarin [Coumadin] 5 mg PO MOWEFR 01/21/18 [History] Pantoprazole Sodium [Protonix] 40 mg PO BID 06/04/19 [History] Sotalol HCl [Sotalol] 1 tab PO BID 06/04/19 [History] Warfarin [Coumadin] 7.5 mg PO SUTUTHSA 06/04/19 [History] Past Medical History HEENT History: Reports: Impaired Vision Other HEENT History: wears glasses Cardiovascular History: Reports: Afib, Arrhythmia, Heart Failure, Other (See Below) Other Cardiovascular History: ARVD (arrhythmogenic R ventricular dysplasia); hx of cardioversion Respiratory History: Reports: Sleep Apnea Gastrointestinal History: Reports: Colon Polyp, Inflammatory Bowel Disease, Other (See Below) Other Gastrointestinal History: Crohn's, ulcerative colitis Genitourinary History: Reports: None Musculoskeletal History: Reports: Back Pain, Chronic, Other (See Below) Other Musculoskeletal History: -H/o long-standing lower back pain from a fall 16 feet landing on back "crushing" T12, L1, L2 in 2006 requiring TLSO turtle shell x3 months. Endocrine/Metabolic History: Reports: Obesity/BMI 30+ - Infectious Disease History Infectious Disease History: Reports: Chicken Pox - Past Surgical History HEENT Surgical History: Reports: Adenoidectomy, LASIK, Naso-Sinus Surgery GI Surgical History: Reports: Colonoscopy Male Surgical History: Reports: Vasectomy Musculoskeletal Surgical History: Reports: Arthroscopic Procedure, Other (See Below) Other Musculoskeletal Surgeries/Procedures:: -12/29/2017: posterolateral revision fusion L4-L5, L5-S1 and segmental instrumentation from removal of the L5 and S1 screws on the R. -12/17/2016: L4-5, L5-S1 posterolateral lumbar fusion ; L4-5 laminectomy; L5-S1 disk laminectomy; interbody device L4-5 and L5-S1; segmental instrumentation L4-5, L5-S1; biosynthetic allograft and autograft from laminectomy posterolateral gutter L4-5, L5-S1. -R shoulder arthroscopy due to RC tear Dermatological Surgical History: Reports: None Social & Family History - Family History Family Medical History: Noncontributory Cardiac: Reports: Aneurysm, Heart Failure, Pacemaker, Stent, Other (See Below) Other Cardiac Family History: ARVD Respiratory: Reports: COPD, Sleep Apnea GI: Reports: Other (See Below) Other GI Family History: Chrons; ulcerative colitis Musculoskeletal: Reports: Fibromyalgia Neurological: Reports: Cerebral Aneurysms Psychiatric: Reports: Psychosis Endocrine/Metabolic: Reports: Diabetes, Type I - Tobacco Use Smoking Status *Q: Never Smoker - Caffeine Use Caffeine Use: Reports: None - Recreational Drug Use Recreational Drug Use: No - Living Situation & Occupation Living situation: Reports: Occupation: Employed ED ROS GENERAL - Review of Systems Review Of Systems: See Below Constitutional: Reports: No Symptoms HEENT: Reports: No Symptoms Respiratory: Reports: Cough, Sputum Cardiovascular: Reports: Chest Pain Endocrine: Reports: No Symptoms GI/Abdominal: Reports: No Symptoms Musculoskeletal: Reports: No Symptoms Skin: Reports: No Symptoms Neurological: Reports: No Symptoms Psychiatric: Reports: No Symptoms Hematologic/Lymphatic: Reports: No Symptoms Immunologic: Reports: No Symptoms ED EXAM, GENERAL - Physical Exam Exam: See Below Exam Limited By: No Limitations General Appearance: Alert, No Apparent Distress Ears: Normal External Exam Nose: Normal Inspection Throat/Mouth: Normal Inspection Head: Atraumatic, Normocephalic Neck: Normal Inspection Respiratory/Chest: Lungs Clear, Normal Breath Sounds Cardiovascular: Regular Rate, Rhythm GI/Abdominal: Normal Bowel Sounds, Soft, Non-Tender Extremities: Pedal Edema Neurological: Alert, Oriented Psychiatric: Normal Affect, Normal Mood Skin Exam: Warm, Dry EKG INTERPRETATION Rhythm: NSR P-Wave: Present QRS: Normal ST-T: Normal Course - Vital Signs Last Recorded V/S: Last Vital Signs Temp 36.1 C 06/04/19 09:21 Pulse 63 06/04/19 10:54 Resp 20 06/04/19 10:54 BP 123/72 06/04/19 11:24 Pulse Ox 95 06/04/19 10:54 - Orders/Labs/Meds Orders: Active Orders 24 hr Category Date Time Status EKG Documentation Completion [RC] ASDIRECTED Care 06/04/19 11:35 Active Nitroglycerin [Nitrostat] Med 06/04/19 10:37 Active 0.4 mg SL Q5M PRN Sodium Chloride 0.9% [Normal Saline] 100 ml Med 06/04/19 10:15 Active IV ASDIRECTED EKG 12 Lead [EK] Routine Ther 06/04/19 11:35 Ordered Medication Orders Sodium Chloride (Normal Saline) 100 mls @ 4 mls/sec IV ASDIRECTED JUAN CARLOS Last Admin: 06/04/19 10:18 Dose: 4 mls/sec Nitroglycerin (Nitrostat) 0.4 mg SL Q5M PRN PRN Reason: Chest Pain Last Admin: 06/04/19 11:24 Dose: 0.4 mg Labs: Laboratory Tests 06/04/19 06/04/19 06/04/19 Range/Units 09:01 09:01 09:30 WBC 9.4 (4.5-11.0) K/uL RBC 4.55 (4.30-5.90) M/uL Hgb 13.6 D (12.0-15.0) g/dL Hct 41.2 (40.0-54.0) % MCV 91 (80-98) fL MCH 30 (27-31) pg MCHC 33 (32-36) % Plt Count 154 (150-400) K/uL PT (9.5-12.0) sec INR (0.80-1.20) Sodium 139 L (140-148) mmol/L Potassium 3.8 (3.6-5.2) mmol/L Chloride 102 (100-108) mmol/L Carbon Dioxide 28 (21-32) mmol/L Anion Gap 12.8 (5.0-14.0) mmol/L BUN 20 H (7-18) mg/dL Creatinine 0.9 (0.8-1.3) mg/dL Est Cr Clr Drug Dosing 108.51 mL/min Estimated GFR (MDRD) > 60 (>60) Glucose 131 H (74-106) mg/dL Calcium 8.1 L (8.5-10.1) mg/dL Total Bilirubin 0.6 (0.2-1.0) mg/dL AST 36 (15-37) U/L ALT 47 (12-78) U/L Alkaline Phosphatase 33 L (46-116) U/L Troponin I 0.964 H* (0.000-0.056) ng/mL NT-Pro-B Natriuret Pep (5-125) pg/mL Total Protein 6.0 L (6.4-8.2) g/dL Albumin 3.7 (3.4-5.0) g/dL Globulin 2.3 (2.3-3.5) g/dL Albumin/Globulin Ratio 1.6 (1.2-2.2) Lipase 71 L (73-393) U/L 06/04/19 06/04/19 06/04/19 Range/Units 09:56 09:56 11:05 WBC (4.5-11.0) K/uL RBC (4.30-5.90) M/uL Hgb (12.0-15.0) g/dL Hct (40.0-54.0) % MCV (80-98) fL MCH (27-31) pg MCHC (32-36) % Plt Count (150-400) K/uL PT 34.8 H (9.5-12.0) sec INR 3.46 H D (0.80-1.20) Sodium (140-148) mmol/L Potassium (3.6-5.2) mmol/L Chloride (100-108) mmol/L Carbon Dioxide (21-32) mmol/L Anion Gap (5.0-14.0) mmol/L BUN (7-18) mg/dL Creatinine (0.8-1.3) mg/dL Est Cr Clr Drug Dosing mL/min Estimated GFR (MDRD) (>60) Glucose (74-106) mg/dL Calcium (8.5-10.1) mg/dL Total Bilirubin (0.2-1.0) mg/dL AST (15-37) U/L ALT (12-78) U/L Alkaline Phosphatase (46-116) U/L Troponin I 0.984 H* (0.000-0.056) ng/mL NT-Pro-B Natriuret Pep 256 H (5-125) pg/mL Total Protein (6.4-8.2) g/dL Albumin (3.4-5.0) g/dL Globulin (2.3-3.5) g/dL Albumin/Globulin Ratio (1.2-2.2) Lipase (73-393) U/L Meds: Medications Generic Name Dose Route Start Last Admin Trade Name West PRN Reason Stop Dose Admin Sodium Chloride 100 mls @ 4 mls/sec 06/04/19 10:15 06/04/19 10:18 Normal Saline IV 4 mls/sec ASDIRECTED JUAN CARLOS Administration Nitroglycerin 0.4 mg 06/04/19 10:37 06/04/19 11:24 Nitrostat SL 0.4 mg Q5M PRN Administration Chest Pain Discontinued Medications Generic Name Dose Route Start Last Admin Trade Name West PRN Reason Stop Dose Admin Aspirin 324 mg 06/04/19 11:29 06/04/19 11:37 Aspirin PO 06/04/19 11:30 324 mg ONETIME ONE Administration Hydromorphone HCl 0.5 mg 06/04/19 10:36 06/04/19 10:43 Dilaudid IVPUSH 06/04/19 10:37 0.5 mg ONETIME ONE Administration Hydromorphone HCl Confirm 06/04/19 10:35 06/04/19 10:43 Dilaudid Administered 06/04/19 10:36 Not Given Dose 0.5 mg .ROUTE .STK-MED ONE Iopamidol 100 ml 06/04/19 10:02 06/04/19 10:18 Isovue-370 (76%) IV 06/04/19 10:03 100 ml . DIRECTED ONE Administration Nitroglycerin Confirm 06/04/19 10:35 06/04/19 10:43 Nitrostat Administered 06/04/19 10:36 Not Given Dose 0.4 mg .ROUTE .K-MED ONE - Re-Assessments/Exams Free Text/Narrative Re-Assessment/Exam: 53-year-old history of Tarah elizalde (on coumadin), ARVD, recent ablation present with concerns of chest pain and dyspnea. On initial eval noted to have normal vitals, but does appear quite uncomfortable on exam. I performed bedside echocardiogram which did show some evidence of reduced ejection fraction, this appears to be new compared to his most recent echo. Given his description of the pain I was concerned for aortic pathology, CT angiogram was obtained and was without evidence of aortic pathology, no PE noted and he is on Coumadin with therapeutic INR. There are some groundglass opacities in the left lower lobe and does describe some infectious symptoms perhaps he has a mild pneumonia. I do not think this is enough to explain all of his symptoms. Labs show elevated troponin of 0.9, stable on recheck 2 hours later, hard to know make of this recent ablation. Remainder of labs unremarkable. Repeat EKG obtained and unchanged. His chest pain and dyspnea did have marked response to nitro. I think that given his systemic symptoms, response to nitro, we need to treat this like an NSTEMI until proven otherwise. I am also concerned about bedside echo findings showing reduced EF. We have arranged transfer to [facility] when her was seen this week and EP services are available. ASA administered. No heparin with elevated INR. 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, cardiology consults ( including EP)) Clinical Impression: NSTEMI (non-ST elevated myocardial infarction) Referrals: Abel Saucedo MD [Primary Care Provider] - Forms: ED Department Discharge - My Orders Last 24 Hours: My Active Orders 06/04/19 10:15 Sodium Chloride 0.9% [Normal Saline] 100 ml IV ASDIRECTED 06/04/19 10:37 Nitroglycerin [Nitrostat] 0.4 mg SL Q5M PRN 06/04/19 11:35 EKG Documentation Completion [RC] ASDIRECTED EKG 12 Lead [EK] Routine - Assessment/Plan Last 24 Hours: My Active Orders 06/04/19 10:15 Sodium Chloride 0.9% [Normal Saline] 100 ml IV ASDIRECTED 06/04/19 10:37 Nitroglycerin [Nitrostat] 0.4 mg SL Q5M PRN 06/04/19 11:35 EKG Documentation Completion [RC] ASDIRECTED EKG 12 Lead [EK] Routine
[2019-06-04] MEDS ORDERED: Sodium Chloride 0.9% 100 ML IV SCH (10:15)
[2019-06-04] MEDS ORDERED: Nitroglycerin 0.4 MG Tab.SL ONE (10:35)
[2019-06-04] MEDS ORDERED: HYDROmorphone 0.5 MG/0.5 ML Syringe ONE (10:35)
[2019-06-04] MEDS ORDERED: HYDROmorphone 0.5 MG/0.5 ML Syringe IVPUSH ONE (10:36)
[2019-06-04] MEDS ORDERED: Nitroglycerin 0.4 MG Tab.SL SL PRN (10:37)
--- NOTE | 2019-06-04 10:51 | CRLCT ---
INDICATION: Chest pain. Recent cardiac ablation. Concern for aortic pathology. COMPARISON: none TECHNIQUE: CT volumetric acquisition was performed of the thorax during intravenous infusion of 100 cc of Isovue-370 nonionic intravenous contrast. FINDINGS: The CT images demonstrate uniform vascular enhancement within the pulmonary arteries. There are no suspicious filling defects which would indicate pulmonary thromboemboli. The thoracic aorta appears of normal size. There is no evidence aortic dissection. The patient has a trace amount of fluid in the pericardial space extending into the superior aortic recess. There is no evidence of inflammation within the mediastinal fat and no evidence of mediastinal or axillary lymphadenopathy. The esophagus appears normal. There is a trace amount of pleural fluid within the lower right thorax. There is dependent ground-glass opacity within the lung bases. There is minimal scarring within the anterior segment right upper lobe and lateral margin of the right middle lobe. IMPRESSION: No evidence of aortic dissection or aneurysm. No evidence pulmonary thromboembolism. Trace amount of fluid noted in the pericardial space predominantly above the superior aortic recess. There is also a trace amount of pleural fluid within the lower right thorax. Dictated by Alejandro Martin MD @ 06/04/2019 10:50:47 AM Please note that all CT scans at this facility use dose modulation, iterative reconstruction, and/or weight-based dosing when appropriate to reduce radiation dose to as low as reasonably achievable. Dictated by: Alejandro Martin MD @ 06/04/2019 10:50:54 (Electronically Signed)
[2019-06-04] MEDS ORDERED: Aspirin 81 MG Tab.Chew PO ONE (11:29)
[2019-06-04 12:41] VITALS: BP 124/75; PULSE 65
== END 2019-06-04 12:35 ==
LOC: JP.ED 08:51
DX: I21.4 Non-ST elevation (NSTEMI) myocardial infarction (principal); I48.91 Unspecified atrial fibrillation; E66.9 Obesity, unspecified; Z68.38 Body mass index [BMI] 38.0-38.9, adult; Z88.1 Allergy status to other antibiotic agents
CPT/HCPCS: 36415; 71045; 71275; 80053; 83690; 83880; 84484; 85027; 85610; 93005; 96374; 99285; A9270; J1170; J7030; Q9967

== ENCOUNTER 2021-02-28 10:22 | Emergency (ER) | payer BC ==
[2021-02-28] MEDS ORDERED: HYDROmorphone 0.5 MG/0.5 ML Syringe IVPUSH ONE ×2 (11:01→12:20)
--- NOTE | 2021-02-28 11:11 | EDM.PDOC ---
<Nayeli Vogt - Last Filed: 02/28/21 14:30> ED HPI GENERAL MEDICAL PROBLEM - General Chief Complaint: Gastrointestinal Problem Stated Complaint: MEDICAL Time Seen by Provider: 02/28/21 11:00 Source of Information: Reports: Patient, Family History Limitations: Reports: No Limitations - History of Present Illness INITIAL COMMENTS - FREE TEXT/NARRATIVE: 55 year old male with history of DM, CHF, ANABELLE, atrial fibrillation and crohns disease presents to the ER from the clinic due to abdominal pain. He reports that his symptoms started 5 days ago with abdominal cramping and diarrhea. He reports being seen in the clinic and started on some oral steroids 2 days ago. Symptoms have increased since with nausea, vomiting, diarrhea, hematochezia, increased abdominal pain and weight loss. He states a history of a significant flare in 2017 that required hospitalization. Denies fevers, denies bowel removal procedures in the past. Onset: Gradual Onset Date: 02/22/21 Duration: Day(s): Location: Reports: Abdomen Quality: Reports: Ache, Sharp, Stabbing Severity: Severe Improves with: Reports: None Worsens with: Reports: Eating, Movement Context: Reports: Other (crohns flare) - Related Data Allergies Allergy/AdvReac Type Severity Reaction Status Date / Time azithromycin Allergy Intermediate Rash Verified 02/28/21 10:39 [From Zithromax Z-Coleman] Home Meds: Home Meds NK [No Known Home Meds] 09/07/20 [History] Past Medical History HEENT History: Reports: Impaired Vision Other HEENT History: wears glasses Cardiovascular History: Reports: Afib, Arrhythmia, Heart Failure, Other (See Below) Other Cardiovascular History: ARVD (arrhythmogenic R ventricular dysplasia); hx of cardioversion Respiratory History: Reports: Sleep Apnea Other Respiratory History: cpap Gastrointestinal History: Reports: Colon Polyp, Inflammatory Bowel Disease, Other (See Below) Other Gastrointestinal History: Crohn's, ulcerative colitis Genitourinary History: Reports: None Musculoskeletal History: Reports: Back Pain, Chronic, Other (See Below) Other Musculoskeletal History: -H/o long-standing lower back pain from a fall 16 feet landing on back "crushing" T12, L1, L2 in 2006 requiring TLSO turtle shell x3 months. Endocrine/Metabolic History: Reports: Obesity/BMI 30+ - Infectious Disease History Infectious Disease History: Reports: Chicken Pox - Past Surgical History Head Surgeries/Procedures: Reports: None HEENT Surgical History: Reports: Adenoidectomy, LASIK, Naso-Sinus Surgery Cardiovascular Surgical History: Reports: Other (See Below) Other Cardiovascular Surgeries/Procedures: angiogram Respiratory Surgical History: Reports: None GI Surgical History: Reports: Colonoscopy Male Surgical History: Reports: Vasectomy Endocrine Surgical History: Reports: None Musculoskeletal Surgical History: Reports: Arthroscopic Procedure, Other (See Below) Other Musculoskeletal Surgeries/Procedures:: -12/29/2017: posterolateral revision fusion L4-L5, L5-S1 and segmental instrumentation from removal of the L5 and S1 screws on the R. -12/17/2016: L4-5, L5-S1 posterolateral lumbar fusion; L4-5 laminectomy; L5-S1 disk laminectomy; interbody device L4-5 and L5-S1; segmental instrumentation L4-5, L5-S1; biosynthetic allograft and autograft from laminectomy posterolateral gutter L4-5, L5-S1. -R shoulder arthroscopy due to RC tear Dermatological Surgical History: Reports: None Social & Family History - Family History Family Medical History: No Pertinent Family History Cardiac: Reports: Aneurysm, Heart Failure, Pacemaker, Stent, Other (See Below) Other Cardiac Family History: ARVD Respiratory: Reports: COPD, Sleep Apnea GI: Reports: Other (See Below) Other GI Family History: Chrons; ulcerative colitis Musculoskeletal: Reports: Fibromyalgia Neurological: Reports: Cerebral Aneurysms Psychiatric: Reports: Psychosis Endocrine/Metabolic: Reports: Diabetes, Type I - Tobacco Use Tobacco Use Status *Q: Never Tobacco User Second Hand Smoke Exposure: No - Caffeine Use Caffeine Use: Reports: None - Recreational Drug Use Recreational Drug Use: No - Living Situation & Occupation Living situation: Reports: Occupation: Employed ED ROS GENERAL - Review of Systems Review Of Systems: See Below Constitutional: Denies: Fever, Chills, Malaise, Weakness HEENT: Reports: No Symptoms Respiratory: Reports: No Symptoms. Denies: Shortness of Breath, Wheezing, Pleuritic Chest Pain, Cough, Sputum Cardiovascular: Reports: No Symptoms. Denies: Chest Pain, Edema, Lightheadedness Endocrine: Reports: No Symptoms GI/Abdominal: Reports: Abdominal Pain, Diarrhea, Hematochezia, Nausea, Vomiting : Reports: No Symptoms. Denies: Flank Pain, Frequency, Hematuria Musculoskeletal: Reports: No Symptoms. Denies: Neck Pain, Shoulder Pain, Arm Pain, Back Pain Skin: Reports: No Symptoms. Denies: Diaphoresis, Bruising, Wound Neurological: Reports: No Symptoms. Denies: Confusion, Dizziness, Headache, Numbness Psychiatric: Reports: No Symptoms Hematologic/Lymphatic: Reports: No Symptoms Immunologic: Reports: No Symptoms ED EXAM, GI/ABD - Physical Exam Exam: See Below Text/Narrative:: Armen is resting on cart with his at the bedside. He appears uncomfortable, intermittently holding his abdomen. He has active bowel sounds and severe pain with abdominal palpation in all quadrants of the abdomen. He is alert and oriented. skin is warm and dry. Respirations are regular and non labored. Lung sounds are clear through out. Exam Limited By: No Limitations General Appearance: Alert, WD/WN, No Apparent Distress Ears: Normal External Exam Nose: Normal Inspection, No Blood Throat/Mouth: Normal Inspection Head: Atraumatic Neck: Normal Inspection, Non-Tender, Full Range of Motion Respiratory/Chest: No Respiratory Distress, Lungs Clear, Normal Breath Sounds. No: Respiratory Distress, Crackles, Rhonchi, Wheezing Cardiovascular: Normal Peripheral Pulses, No Edema GI/Abdominal Exam: Normal Bowel Sounds, Soft, Tender (Male) Exam: Deferred Rectal (Males) Exam: Deferred Back Exam: Normal Inspection, Full Range of Motion Extremities: Normal Inspection, Normal Range of Motion, Non-Tender. No: Pedal Edema, Arm Pain, Increased Warmth Neurological: Alert, Oriented, Normal Cognition, Normal Gait. No: Confused Psychiatric: Normal Affect, Normal Mood Skin Exam: Warm, Dry, Intact, No Rash Lymphatic: No Adenopathy Course - Vital Signs Text/Narrative:: Discussed with patient and the need for CBC, CMP, Lactic, and CT abdomen with contrast. Patient was given a L of NS and 0.5 mg dilaudid for pain control. Patient and family in agreement with plan of care at this time. Departure - Departure Disposition: Home, Self-Care 01 Condition: Good Clinical Impression: Crohn's disease, Crohn's disease of both small and large intestine - Discharge Information Instructions: Dehydration, Elderly, [id number], Diarrhea, Adult, [id number], Crohn's Disease Referrals: Abel Saucedo MD [Primary Care Provider] - Forms: ED Department Discharge Additional Instructions: Your lab work and imaging today looks ok despite the severe symptoms of your crohns flare up. Please continue taking steroids at home and begin oral cipro 500 twice per day for 10 days. Return to the ER if your symptoms continue to increase, if you have fevers, increased blood, lightheadedness, or other suman rning symptoms. Try to stay hydrated and increase diet as tolerated. Sepsis Event Note (ED) - Evaluation Sepsis Screening Result: No Definite Risk <Jose Salamanca - Last Filed: 02/28/21 15:39> Course - Vital Signs Last Recorded V/S: Last Vital Signs Temp 98.1 F 02/28/21 10:42 Pulse 59 L 02/28/21 12:15 Resp 17 02/28/21 10:42 BP 142/80 H 02/28/21 12:15 Pulse Ox 94 L 02/28/21 12:15 - Orders/Labs/Meds Orders: Active Orders 24 hr Category Date Time Status CULTURE STOOL + SHIGATOX [RM] Stat Lab 02/28/21 12:22 Results Clostridium [CLOS DIFFICILE PCR W/REFLEX] [RM] Stat Lab 02/28/21 12:22 Results LACTIC ACID [CHEM] Stat Lab 02/28/21 11:01 Ordered Saline Lock Insert [OM.PC] Routine Oth 02/28/21 11:01 Ordered Labs: Laboratory Tests 02/28/21 02/28/21 Range/Units 10:41 10:41 WBC 7.3 (4.5-11.0) K/uL RBC 4.83 (4.30-5.90) M/uL Hgb 14.7 (12.0-15.0) g/dL Hct 42.6 (40.0-54.0) % MCV 88 (80-98) fL MCH 30 (27-31) pg MCHC 35 (32-36) % Plt Count 195 (150-400) K/uL Neut % (Auto) 62.7 (36-66) % Lymph % (Auto) 22.1 L (24-44) % [place] % (Auto) 12.9 H (2-6) % Eos % (Auto) 1.8 L (2-4) % Baso % (Auto) 0.5 (0-1) % Sodium 144 (140-148) mmol/L Potassium 3.7 (3.6-5.2) mmol/L Chloride 108 (100-108) mmol/L Carbon Dioxide 27 (21-32) mmol/L Anion Gap 8.9 (5.0-14.0) mmol/L BUN 17 (7-18) mg/dL Creatinine 0.9 (0.8-1.3) mg/dL Est Cr Clr Drug Dosing 106.04 mL/min Estimated GFR (MDRD) > 60 (>60) Glucose 120 H (74-106) mg/dL Calcium 8.8 (8.5-10.1) mg/dL Total Bilirubin 0.3 (0.2-1.0) mg/dL AST 46 H (15-37) U/L ALT 102 H (12-78) U/L Alkaline Phosphatase 61 D (46-116) U/L Total Protein 5.9 L (6.4-8.2) g/dL Albumin 3.3 L (3.4-5.0) g/dL Globulin 2.6 (2.3-3.5) g/dL Albumin/Globulin Ratio 1.3 (1.2-2.2) Meds: Medications Discontinued Medications Generic Name Dose Route Start Last Admin Trade Name Freq PRN Reason Stop Dose Admin Hydromorphone HCl 0.5 mg 02/28/21 11:01 02/28/21 11:12 Hydromorphone 0.5 Mg/0.5 Ml Syringe IVPUSH 02/28/21 11:02 0.5 mg ONETIME ONE Administration Hydromorphone HCl 0.5 mg 02/28/21 12:20 02/28/21 12:30 Hydromorphone 0.5 Mg/0.5 Ml Syringe IVPUSH 02/28/21 12:21 0.5 mg ONETIME ONE Administration Sodium Chloride 1,000 mls @ 999 mls/hr 02/28/21 11:15 02/28/21 11:11 Normal Saline IV 999 mls/hr ASDIRECTED JUAN CARLOS Administration Sodium Chloride 85 mls @ 3 mls/sec 02/28/21 11:45 02/28/21 11:56 Normal Saline IV 02/28/21 11:46 3 mls/sec ASDIRECTED JUAN CARLOS Administration Ciprofloxacin/Dextrose 400 mg/ 200 mls @ 200 mls/hr 02/28/21 13:34 02/28/21 13:41 Premix IV 02/28/21 14:33 200 mls/hr ONETIME ONE Administration Iopamidol 150 ml 02/28/21 11:45 02/28/21 11:56 Iopamidol 612 Mg/Ml 150 Ml Bottle IV 02/28/21 11:46 150 ml . DIRECTED JUAN CARLOS Administration Methylprednisolone Sodium Succinate 125 mg 02/28/21 12:45 02/28/21 13:03 Methylprednisolone Sodium Succinate 125 Mg/2 Ml Sdv IVPUSH 02/28/21 12:46 125 mg ONETIME ONE Administration Sodium Chloride 10 ml 02/28/21 11:43 02/28/21 11:56 Sodium Chloride 0.9% 10 Ml Syringe FLUSH 02/28/21 11:44 10 ml ONETIME ONE Administration Departure - Departure Time of Disposition: 15:07 Sepsis Event Note (ED) - Focused Exam Vital Signs: Vital Signs Temp Pulse Resp BP Pulse Ox 02/28/21 12:15 59 L 142/80 H 94 L 02/28/21 11:15 61 137/77 95 02/28/21 10:42 98.1 F 65 17 144/80 H 95 02/28/21 10:40 98.1 F 65 17 144/80 H 95 - My Orders Last 24 Hours: My Active Orders 02/28/21 12:22 CULTURE STOOL + SHIGATOX [RM] Stat Clostridium [CLOS DIFFICILE PCR W/REFLEX] [] Stat - Assessment/Plan Last 24 Hours: My Active Orders 02/28/21 12:22 CULTURE STOOL + SHIGATOX [RM] Stat Clostridium [CLOS DIFFICILE PCR W/REFLEX] [] Stat Attestation - Student - Attestation Statement Attestation Statement: I personally performed or re-performed the physical examination and medical decision making. I have verified all student documentation or findings, including history, physical exam and/or medical decision making.
[2021-02-28] MEDS ORDERED: Sodium Chloride 0.9% 1,000 ML IV SCH (11:15)
[2021-02-28] MEDS ORDERED: Sodium Chloride 0.9% 10 ML Syringe FLUSH ONE (11:43)
[2021-02-28] MEDS ORDERED: Iopamidol 612 MG/ML 150 ML Bottle IV SCH (11:45)
[2021-02-28] MEDS ORDERED: methylPREDNISolone Sodium Succinate 125 MG/2 ML SDV IVPUSH ONE (12:45)
[2021-02-28 13:01] VITALS: BP 142/80; PULSE 59
--- NOTE | 2021-02-28 13:10 | CT ---
Abdomen Pelvis w Cont CLINICAL HISTORY: Abdominal pain, history of Crohn's COMPARISON: None. TECHNIQUE: Transverse scans were obtained from the base of the lungs to the pubic symphysis following oral contrast and IV infusion of contrast.Auto dosage reduction and iterative reconstructiontechniques employed. FINDINGS: The lung bases are clear. The liver shows no mass or biliary dilatation. The gallbladder has a normal contour. The spleen is enlarged at over 15 cm in length. The pancreas shows no mass or inflammatory change. The adrenal glands appear normal bilaterally . The kidneys are free of mass, stones or hydronephrosis. The ureters have normal course and caliber. The bladder has normal contour. The aorta is free of aneurysm. There are a few small scattered periaortic lymph nodes. These are nonspecific. Abdominal pelvic fat planes and low pelvic side lyles are well demarcated. The small intestinal configuration is nonacute. There is moderate stool in the right colon. The left: Is empty. There is impression of some mucosal edema and possibly some mild mucosal enhancement. There are a few scattered diverticula without evidence of diverticulitis. IMPRESSION: Splenomegaly Suggestion of some mucosal edema in the descending and rectosigmoid colon. There is no inflammatory change in the surrounding fat. Nonacute small intestinal gas pattern
[2021-02-28] MEDS ORDERED: Ciprofloxacin in D5W 400 MG in Premix Bag 1 BAG IV ONE ×2 (13:34)
== END 2021-02-28 15:07 | disposition home or self-care (01) ==
LOC: JP.ED 10:22
DX: K50.80 Crohn's disease of both small and large intestine without complications (principal); I48.91 Unspecified atrial fibrillation; I50.9 Heart failure, unspecified; E11.9 Type 2 diabetes mellitus without complications; E66.9 Obesity, unspecified; Z68.38 Body mass index [BMI] 38.0-38.9, adult; Z88.1 Allergy status to other antibiotic agents
CPT/HCPCS: 36415; 74177; 80053; 83605; 85025; 87046; 87493; 87899; 89055; 96365; 96375; 96376; 99284; J0744; J1170; J2930; J7030; Q9967

== ENCOUNTER 2022-02-28 09:14 | Emergency (ER) | payer BC ==
[2022-02-28 10:27] LABS: ESTIMATED GFR 101 mL/min (>60); TROPONIN I HIGH SENSITIVITY 6.9 pg/mL (<=60.3)
[2022-02-28 12:06] VITALS: BP 118/80; PULSE 86
== END 2022-02-28 13:05 | disposition home or self-care (01) ==
LOC: JP.ED 09:14
DX: I48.19 Other persistent atrial fibrillation (principal); E66.9 Obesity, unspecified; Z68.39 Body mass index [BMI] 39.0-39.9, adult; Z88.1 Allergy status to other antibiotic agents; Z79.01 Long term (current) use of anticoagulants
CPT/HCPCS: 36415; 71045; 71045-26; 80053; 83880; 84484; 85025; 85610; 93005; 93010; 99284; 99285

== ENCOUNTER 2023-02-09 11:41 | Emergency (ER) | payer BC ==
[2023-02-09 11:56] LABS: HEMATOCRIT 47.1 % (38.4-49.7); HEMOGLOBIN 16.2 g/dL (12.9-16.9); MEAN CORPUSCULAR HEMOGLOBIN 29.9 pg (31.6-35.5); MEAN CORPUSCULAR HGB CONC 34.4 g/dL (31.6-35.5); MEAN CORPUSCULAR VOLUME 87.1 fL (81.4-99.0); RED BLOOD CELL COUNT 5.41 M/uL (4.14-5.76); WHITE BLOOD CELL COUNT,WBC 10.2 K/uL (3.2-11.0)
[2023-02-09] MEDS ORDERED: Diltiazem 25 MG/5 ML SDV IVPUSH ONE (12:04)
[2023-02-09 12:08] LABS: INR 1.1; PROTHROMBIN TIME 10.7 sec (9.2-10.6)
[2023-02-09 12:10] VITALS: BP 106/72; PULSE 112
[2023-02-09] MEDS ORDERED: Sodium Chloride 0.9% 1,000 ML IV SCH (12:15)
[2023-02-09 12:20] LABS: CALCIUM 8.3 mg/dL (8.5-10.1); CREATININE 0.9 mg/dL (0.8-1.3); EST CRCL DRUG DOSING (CG) 103.57 mL/min; POTASSIUM,K 3.5 mmol/L (3.6-5.2); TROPONIN I HIGH SENSITIVITY 9.3 pg/mL (<=60.3)
[2023-02-09 12:21] LABS: ANION GAP 9.5 mmol/L (5.0-14.0)
[2023-02-09] MEDS ORDERED: Propofol 200 MG/20 ML SDV ONE (12:36)
== END 2023-02-09 13:28 | disposition home or self-care (01) ==
LOC: JP.ED 11:41
DX: I48.19 Other persistent atrial fibrillation (principal); G47.33 Obstructive sleep apnea (adult) (pediatric); I50.9 Heart failure, unspecified; E66.9 Obesity, unspecified; Z68.39 Body mass index [BMI] 39.0-39.9, adult; Z88.1 Allergy status to other antibiotic agents; Z79.899 Other long term (current) drug therapy
CPT/HCPCS: 36415; 80048; 83880; 84484; 85027; 85610; 92960; 93005; 96360; 99285; J2704; J7030